=== PATIENT | female | born 1995 | race Caucasian/White ===

== ENCOUNTER 2019-07-11 14:36 | Emergency (ER) | payer OTHER, MEDICAID ==
[~2019-07-11] VITALS: Ht 160 cm; Wt 59.0 kg
[~2019-07-11 14:36] MED LIST: NAPROSYN500 MG PO
[2019-07-11] MEDS ORDERED: ATENOLOL 50MG T50 M1 PO (14:52)
[2019-07-11 15:01] LABS: URINE BILIRUBIN NEGATIVE (Negative); URINE BLOOD NEGATIVE (Negative); URINE CLARITY CLEAR; URINE COLOR YELLOW; URINE GLUCOSE-RANDOM NEGATIVE (Negative); URINE KETONES NEGATIVE (Negative); URINE LEUKOCYTES-REFLEX NEGATIVE (Negative); URINE NITRITE-REFLEX NEGATIVE (Negative); URINE PROTEIN NEGATIVE (Negative); URINE UROBILINOGEN 0.2 E.U./dl (0.2-1.0)
[2019-07-11 15:30] LABS: ABSOLUTE EOSINOPHILS 0.1 thou/uL (0.0-0.7); ABSOLUTE LYMPHOCYTES 1.7 thou/uL (0.8-5.3); ABSOLUTE MONOCYTES 0.7 thou/uL (0.0-1.2); ABSOLUTE NEUTROPHILS 6.1 thou/uL (1.6-8.1); BASOPHILS 0.5 %; EOSINOPHILS 1.6 %; HEMATOCRIT 41.9 % (37.0-47.0); HEMOGLOBIN 14.4 gm/dL (12.0-15.0); LYMPHOCYTES 19.8 %; MCH 31.4 pg (26.0-34.0); MCHC 34.3 g/dL (28.0-37.0); MCV 91.6 fL (80.0-100.0); MONOCYTES 8.3 %; MPV 8.6 fl. (7.2-11.1); NUCLEATED RBCS 0 /100WBC; PLATELET COUNT* 247 thou/uL (150-400); POLYS 69.8 %; RBC 4.58 mil/uL (4.20-5.00); RDW-CV 12.7 % (10.5-14.5); WBC 8.7 thou/uL (4.0-11.0)
[2019-07-11 15:39] LABS: CALCIUM 9.2 mg/dL (8.5-10.1); CREATININE 0.8 mg/dL (0.6-1.3); POTASSIUM 3.2 mmol/L (3.5-5.1)
[2019-07-11 15:43] LABS: ALBUMIN 4.5 g/dL (3.4-5.0); TOTAL BILIRUBIN 0.7 mg/dL (<0.1-1.0); TOTAL PROTEIN 8.1 g/dL (6.4-8.2)
[2019-07-11] MEDS ORDERED: ACETAMINOPHEN-1 EAC1 PO (19:24)
[2019-07-11] MEDS ORDERED: ZOFRAN4 MG PO (19:24)
[2019-07-11 19:43] VITALS: BP 148/86
== END 2019-07-11 19:43 | disposition home or self-care (01) ==
LOC: M.ERS 14:36
PROVIDERS: Nurse Practitioner Family
DX: R10.31 Right lower quadrant pain (principal); F41.9 Anxiety disorder, unspecified; I10 Essential (primary) hypertension

== ENCOUNTER 2020-01-30 08:56 | Emergency (ER) | payer OTHER ==
[~2020-01-30] VITALS: Ht 162.6 cm; Wt 51.3 kg
[~2020-01-30 08:56] MED LIST changes: +ACETAMINOPHEN-1 EAC1 PO; +ATENOLOL 50MG T50 M1 PO; +ZOFRAN4 MG PO
[2020-01-30] MEDS ORDERED: NAPROSYN500 MG PO (09:48)
[2020-01-30 10:00] VITALS: BP 105/52
--- NOTE | 2020-01-30 16:40 | EKG ---
[place] [address] ELECTROCARDIOGRAM REPORT Name: LINO LEIJA Room: [facility]#: [id number] Admission: 01/30/20 Attend Phys: Discharge: 01/30/20 Date of : 89 Date of Service: 01/30/2028 Report #: [id number] THIS REPORT FOR: //name// [facility] ED Test Date: 2020-01-30 Test Time: 09:28:30 Pat Name: LION LEIJA Department: Room: Gender: [employer] In[employer] Specialist: MS : 1995 Requested By: Dax Coates Order Number: [id number] MD: Vikash Payne Measurements Intervals [place] Rate: 62 P: 16 MD: 117 QRS: 51 QRSD: 95 T: -38 QT: 411 QTc: 418 Interpretive Statements Sinus rhythm Borderline short MD interval RSR' in V1 or V2, right VCD Borderline T abnormalities, inferior leads Compared to ECG 04/10/2016 11:48:29 RSR' in V1 or V2 now present Prolonged QT interval no longer present T-wave abnormality still present Electronically Signed On 01-30-2020 16:39:18 CDT by Vikash Payne [email or web address] <ELECTRONICALLY SIGNED> By: Vikash Payne MD, [facility] 01/30/20 1639 7 7 Vikash Payne MD, [facility] /EPI
== END 2020-01-30 10:02 | disposition home or self-care (01) ==
LOC: M.ERS 08:56
DX: R51 Headache (principal); R10.13 Epigastric pain; R06.02 Shortness of breath; F41.9 Anxiety disorder, unspecified; I10 Essential (primary) hypertension; M54.2 Cervicalgia